=== PATIENT | male | born 1980 | race Caucasian/White ===

== ENCOUNTER → 2018-09-01 | Day surgery (SDC) | payer BC ==
[~2018-09-01] MED LIST: ACETAMINOPHEN 1000 MG/100 ML IV ONE; CEFAZOLIN SOD 1 GM/NS 50ML 50 ML IV ONE; DEXAMETHASONE SOD PHOS INJ 4 MG/ML VIAL ONE; FENTANYL CITRATE/PF 100MCG/2 ML INJ ONE; KETOROLAC TROMETHAMINE 30 MG/ML VIAL ONE; LIDOCAINE HCL 2% LOCAL INJ 5 ML SDV VIAL INJ ONE; MIDAZOLAM HCL 2 MG/2 ML VIAL ONE; PROPOFOL IV EMULSION 10 MG/ML 20 ML VIAL ONE; SEVOFLURANE INHAL SOLN 250 ML PEN BTL ONE
--- OUTSIDE RECORDS SUMMARY | 2018-09-01 07:42 | XMS REPORT | Continuity of Care Document ---
Author Author [facility] Interface Address Unknown Phone Unavailable Problems Problem Status Onset Date Classification Date Reported Comments Source Productive cough 06/10/2018 Diagnosis 06/10/2018 [facility] Upper respiratory infection 06/10/2018 Diagnosis 06/10/2018 [facility] Fever 01/17/2018 Diagnosis 01/17/2018 [facility] Streptococcal sore throat 01/17/2018 Diagnosis 01/17/2018 [facility] Acute otitis media with effusion 10/13/2017 Diagnosis 10/13/2017 [facility] Posterior rhinorrhea 10/13/2017 Diagnosis 10/13/2017 [facility] Acute pharyngitis 10/13/2017 Diagnosis 10/13/2017 [facility] Tinea cruris 02/12/2017 Diagnosis 02/12/2017 [facility] Generalized aches and pains 02/12/2017 Diagnosis 02/12/2017 [facility] Dry cough 02/12/2017 Diagnosis 02/12/2017 [facility] Contact dermatitis 07/30/2016 Diagnosis 07/30/2016 [facility] Conjunctivitis Problem 02/12/2017 [facility] Influenza Problem 02/12/2017 [facility] Medications Medication Details Route Status Patient Instructions Ordering Provider Order Date Source Amoxicillin 875 MG Oral Tablet amoxicillin 875 mg tablet Take 1 tablet every 12 hours by oral route as directed for 10 days. Active [facility] Diazepam 2 MG Oral Tablet diazepam 2 mg tablet Active [facility] Fluticasone propionate 0.05 MG/ACTUAT Metered Dose Nasal [place] fluticasone 50 mcg/actuation nasal spray,suspension [place] 1 spray twice a day by intranasal route for 30 days. Active [facility] Medrol (Sanket) 4 mg tablets in a dose pack Medrol (Sanket) 4 mg tablets in a dose pack take as directed, tapering doses Active [facility] cetirizine hydrochloride 10 MG Oral Tablet [Zyrtec] Zyrtec 10 mg tablet Take 1 tablet every day by oral route for 15 days. Active [facility] Fluconazole 150 MG Oral Tablet [Diflucan] Diflucan 150 mg tablet Take 1 tablet every week by oral route. Active [facility] Ketoconazole 20 MG/ML Topical Cream ketoconazole 2 % topical cream APPLY TO THE AFFECTED AREA(S) BY TOPICAL ROUTE ONCE DAILY Active [facility] Triamcinolone Acetonide 1 MG/ML Topical Cream triamcinolone acetonide 0.1 % topical cream APPLY A THIN LAYER TO THE AFFECTED AREA(S) BY TOPICAL ROUTE 2 TIMES PER DAY X 10 DAYS Active [facility] Ofloxacin 3 MG/ML Ophthalmic Solution ofloxacin 0.3 % eye drops INSTILL 1 DROP INTO AFFECTED EYE(S) BY OPHTHALMIC ROUTE 4 TIMES PER DAY x 7 days Active [facility] No Medications Reported No Medications Reported Active [facility] benzonatate 200 MG Oral Capsule benzonatate 200 mg capsule Take 1 capsule 3 times a day by oral route as needed. Active [facility] Dexamethasone 1 MG/ML / Neomycin 3.5 MG/ML / Polymyxin B 09240 UNT/ML Ophthalmic Suspension lewxxdjc-xvvihiwvt-bcsquktm 3.5 mg/mL-10,000 unit/mL-0.1% eye drops Active [facility] Azithromycin 250 MG Oral Tablet Zithromax Z-Sanket 250 mg tablet TAKE 2 TABLETS (500 MG) BY ORAL ROUTE ONCE DAILY FOR 1 DAY THEN 1 TABLET (250 MG) BY ORAL ROUTE ONCE DAILY FOR 4 DAYS Active [facility] Allergies, Adverse Reactions, Alerts Substance Category Reaction Severity Reaction type Status Date Reported Comments Source Immunizations Immunization Date Given Site Status Last Updated Comments Source influenza, injectable, quadrivalent 01/30/2018 completed [facility] influenza, injectable, quadrivalent 12/30/2016 completed [facility] influenza, seasonal, injectable 12/01/2015 completed [facility] influenza, seasonal, injectable 04/24/2013 completed [facility] Tdap 01/26/2009 completed [facility] Results Order Name Results Value Reference Range Date Interpretation Comments Source Influenza A negative 01/17/2018 [facility] Influenza B negative 01/17/2018 [facility] RESULT positive 01/17/2018 [facility] SWAB LOCATION Left and Right tonsillar pillars 01/17/2018 [facility] RESULT negative 10/13/2017 [facility] SWAB LOCATION Left and Right tonsillar pillars 10/13/2017 [facility] Influenza A negative 02/12/2017 [facility] Influenza B negative 02/12/2017 [facility] Adenovirus Ag [Presence] in Unspecified specimen by Immunoassay RESULT negative 03/09/2016 [facility] Adenovirus Ag [Presence] in Unspecified specimen by Immunoassay SWAB LOCATION Right Conjunctiva 03/09/2016 [facility] Influenza A positive 03/09/2016 [facility] Influenza B negative 03/09/2016 [facility] Influenza A positive 02/08/2016 [facility] Influenza B negative 02/08/2016 [facility] Vital Signs Vital Sign Value Date Comments Source Diastolic (mm Hg) 80 06/10/2018 [facility] Height 80 06/10/2018 [facility] Systolic (mm Hg) 118 06/10/2018 [facility] Weight 220 06/10/2018 [facility] Diastolic (mm Hg) 78 01/17/2018 [facility] Height 80 01/17/2018 [facility] Systolic (mm Hg) 112 01/17/2018 [facility] Weight 220 01/17/2018 [facility] Diastolic (mm Hg) 68 10/13/2017 [facility] Height 80 10/13/2017 [facility] Systolic (mm Hg) 110 10/13/2017 [facility] Weight 219 10/13/2017 [facility] Diastolic (mm Hg) 80 02/12/2017 [facility] Height 80 02/12/2017 [facility] Systolic (mm Hg) 126 02/12/2017 [facility] Weight 215 02/12/2017 [facility] Diastolic (mm Hg) 80 07/30/2016 [facility] Height 80 07/30/2016 [facility] Systolic (mm Hg) 124 07/30/2016 [facility] Weight 215 07/30/2016 [facility] Diastolic (mm Hg) 80 03/09/2016 [facility] Height 80 03/09/2016 [facility] Systolic (mm Hg) 126 03/09/2016 [facility] Weight 210 03/09/2016 [facility] Diastolic (mm Hg) 88 02/08/2016 [facility] Height 80 02/08/2016 [facility] Systolic (mm Hg) 136 02/08/2016 [facility] Weight 213 02/08/2016 [facility] Encounters Location Location Details Encounter Type Encounter Number Reason For Visit Attending Provider ADM Date DC Date Status Source [place] - [facility] - [id number] MontelongoP: [address] [facility] [address], Ph. [id number] Chandni Reyez 02/08/2016 [facility] [place] [facility] - [id number] Chandnibreann Reyez, SCRIPT MANAGER: [address] [facility] [address] [place] [address], Ph. [id number] Chandni Reyez 02/08/2016 [facility] [place] [facility] - [id number] Chandni Reyez, SCRIPT MANAGER: [address] [facility] [address] [place] [id number], Ph. [id number] Chandni Reyez 03/09/2016 [facility] [place] [facility] - [id number] Rebecca Lomax, SCRIPT MANAGER: [address] [facility] [address] [place] [address], Ph. [id number] Rebecca Lomax 07/30/2016 [facility] [place] [facility] - [id number] Rafael Lomax, SCRIPT MANAGER: [address] [facility] [address], Ph. [id number] Rafael Lomax 02/12/2017 [facility] [place] [facility] - [id number] Eliceo Russell, STAFF CYTOTECHNOLOGIST-C: [address] [facility] [address], Ph. [id number] Eliceo Russell 10/13/2017 [facility] [place] [facility] [id number] Sendy Rees, SCRIPT MANAGER-C: [address] [place] [address], Ph. [phone] [id number] Sendy Rees 01/17/2018 [facility] [place] [facility] - [id number] [place] Sendy Rees, SCRIPT MANAGER-C: [address] [place] [facility] [place] [facility] [address], Ph. [phone] [id number] Sendy Rees 06/10/2018 [facility] Procedures Procedure Code Date Perfomer Comments Source
--- OUTSIDE RECORDS SUMMARY | 2018-09-01 07:43 | XMS REPORT | Encounter Summary ---
Author Organization Unknown Address [address] [place] [address] Phone [phone] Reason for Visit Medical Complaint Instructions 1. Contact dermatitis triamcinolone acetonide 0.1 % topical cream Discussion Note: None recorded. Patient educational handouts: No information available. Plan of Care Patient Instructions Keep area clean and dry. Monitor for any pustule drainage, tender, warm to touch. If those symptoms occur, call clinic back. Reminders Provider Appointments None recorded. Lab None recorded. Referral None recorded. Procedures None recorded. Surgeries None recorded. Imaging None recorded. Medications Name Start Date triamcinolone acetonide 0.1 % topical cream APPLY A THIN LAYER TO THE AFFECTED AREA(S) BY TOPICAL ROUTE 2 TIMES PER DAY x 10 days Medications Administered None recorded. Vitals Height Weight BMI Blood Pressure 6 ft 8 in 215 lbs 23.6 124/80 Lab Results None recorded. Allergies Code Code System Name Reaction Severity Onset NKDA Problems Name Status Onset Date Source Conjunctivitis Active Encounter Influenza Active Encounter Procedures None recorded. Vaccine List Vaccine Type influenza, seasonal, injectable 04/24/2013 11/30/2015 Tdap 01/26/2009 Social History Smoking Status Never Smoker Past Encounters 07/30/2016 Contact Dermatitis Rebecca Lomax, EDI DEVELOPER: [address] [facility] [place] [address], Ph. History of Present Illness Jzmq-Rsyrrsl-Sppdi-Skin Lesion-Bite 2 Reported By: Patient HPI: Location: ; right lateral lower leg. Quality: itchy. Duration: has noted for 1-2 weeks. Onset/Timing: abrupt onset. Context: bite/sting exposure. Aggravating factors: nothing makes it worse. Alleviating factors: nothing gives relief. Associated Symptoms: no fever/chills, no muscle aches, no headache, no cold symptoms, no nausea, no vomiting, no diarrhea, no urinary symptoms Lwwg-Jnefxih-Yvlub-Skin Lesion-Bite 1 Reported By: Patient HPI: Location: ; right foot. Quality: itchy. Severity: moderate. Duration: has noted for 1-2 weeks; 1 week. Onset/Timing: abrupt onset. Context: no one else with similar rash, no sting or bite, tick exposure. Aggravating factors: nothing makes it worse. Alleviating factors: ; denies of taking any otc. Associated Symptoms: no fever/chills, no muscle aches, no headache, no cold symptoms, no nausea, no vomiting, no diarrhea, no urinary symptoms Review of Systems Basic Reported By: Patient Constitutional: Constitutional: no fever Eyes: Eyes: no eye complaints Kyfn-Bgzn-Yvjnx-Throat: Ears: no ear complaints. Nose: no nose/sinus problems. Mouth/Throat: no sore throat, no bleeding gums, no mouth complaints, no teeth problems Cardiovascular: Cardiovascular: no chest pain, no shortness of breath, no known heart murmur Respiratory: Respiratory: no cough, no wheezing, no shortness of breath Gastrointestinal: Gastrointestinal: no abdominal pain, no vomiting / diarrhea Genitourinary: Genitourinary: no urinary complaints, no discharge Musculoskeletal: Musculoskeletal: no muscle aches, no muscle weakness, no arthralgias/joint pain, no back pain Skin: Skin: no abnormal / changing mole, no jaundice, rash, itching Neurologic: Neurologic: no loss of consciousness, no weakness, no numbness, no seizures, no dizziness, no headaches Physical Exam Adult Basic, Adult Female Complete, Adult Male Complete Reported By: Patient Constitutional: General Appearance: healthy-appearing, well-nourished, well-developed. Level of Distress: NAD. Ambulation: ambulating normally Psychiatric: Mental Status: active and alert. Orientation: to time, to place, to person Eyes: Lids and Conjunctivae: non-injected, no discharge, no pallor. Pupils: PERRLA. Corneas: grossly intact. EOM: EOMI. Lens: clear. Sclerae: non-icteric. Vision: acuity grossly intact Osc-Exez-Ucbcn-Throat: Ears: no lesions on external ear, no outer ear tenderness, EACs clear, TMs clear. Hearing: no hearing loss. Nose: no lesions on external nose, nares patent, no septal deviation, nasal passages clear, no sinus tenderness, no nasal discharge. Lips, Teeth, and Gums: no mouth or lip ulcers, no bleeding gums, normal dentition. Oropharynx: moist mucous membranes, no erythema, no exudates, tonsils not enlarged Neck: Neck: supple, trachea midline, no masses, FROM. Lymph Nodes: no cervical LAD, no supraclavicular LAD. Thyroid: no enlargement, non-tender, no nodules Lungs: Respiratory effort: no dyspnea, no tachypnea, no use of accessory muscles, no intercostal retractions. Auscultation: breath sounds normal Cardiovascular: Heart Auscultation: RRR, no murmurs. Neck vessels: no carotid bruits Skin: Inspection and palpation: rash
--- OUTSIDE RECORDS SUMMARY | 2018-09-01 07:43 | XMS REPORT | Encounter Summary ---
Author Organization Unknown Address [address] [place] [address] Phone [phone] Reason for Visit Medical Complaint Instructions 1. Upper respiratory infection upper respiratory infection (cold): care instructions 2. Productive cough benzonatate 200 mg capsule Zithromax Z-Sanket 250 mg tablet cough: care instructions Discussion Note Pt. is NAD. Take medications as prescribed; f/u with PCP within 2-3 days should symptoms worsen as discussed. ER precautions and Care instructions given. Verbalized all instructions. No further questions upon d/c. Plan of Care Patient Instructions To prevent dehydration, drink plenty of fluids, enough so that your urine is light yellow or clear like water. Choose water and other caffeine-free clear liquids until you feel better. If you have kidney, heart, or liver disease and have to limit fluids, talk with your doctor before you increase the amount of fluids you drink. Take an nguc-kml-laogrui pain medicine, such as acetaminophen (Tylenol), ibuprofen (Advil, Motrin), or naproxen (Aleve). Read and follow all instructions on the label. Before you use cough and cold medicines, check the label. These medicines may not be safe for young children or for people with certain health problems. Be careful when taking xakl-bvt-nmpftcr cold or flu medicines and Tylenol at the same time. Many of these medicines have acetaminophen, which is Tylenol. Read the labels to make sure that you are not taking more than the recommended dose. Too much acetaminophen (Tylenol) can be harmful. Get plenty of rest. Do not smoke or allow others to smoke around you. Reminders Provider Appointments None recorded. Lab None recorded. Referral None recorded. Procedures None recorded. Surgeries None recorded. Imaging None recorded. Medications Name Start Date benzonatate 200 mg capsule Take 1 capsule 3 times a day by oral route as needed. ygozitvi-sbjdaoruw-qekqybnx 3.5 mg/mL-10,000 unit/mL-0.1% eye drops Zithromax Z-Sanket 250 mg tablet TAKE 2 TABLETS (500 MG) BY ORAL ROUTE ONCE DAILY FOR 1 DAY THEN 1 TABLET (250 MG) BY ORAL ROUTE ONCE DAILY FOR 4 DAYS Medications Administered None recorded. Vitals Height Weight BMI Blood Pressure 6 ft 8 in 220 lbs 24.2 kg/m2 118/80 mm[Hg] Lab Results None recorded. Allergies Code Code System Name Reaction Severity Status Onset NKDA Problems No Known Problems Procedures None recorded. Vaccine List Vaccine Type influenza, injectable, quadrivalent 12/30/2016 01/30/2018 influenza, seasonal, injectable 04/24/2013 12/01/2015 Tdap 01/26/2009 Social History Smoking Status Never Smoker Past Encounters 06/10/2018 Upper Respiratory Infection; Productive Cough Rashmin Negrita, [employer]: [address] [facility], [place] [address], Ph. [phone] History of Present Illness Bcyng-Evxwodlqwg-Wccfiip Reported By: Patient HPI: Location: head/sinuses, chest. Quality: productive cough, colored phlegm, nasal/sinus congestion. Duration: 9days; not improving per pt. Severity: mild, moderate. Onset/Timing: gradual. Context: no foreign travel, non-smoker, sick contact. Modifying factors: OTC medication. Associated Symptoms: no shortness of breath, no wheezing, no change in number of pillows needed to sleep at night, no sweats, no significant weight gain, no significant weight loss, no sore throat, no vomiting, no diarrhea, no rash, no nausea, no muscle aches, no headache, yellow-green, thick sputum, morning cough, fever Notes: Also reports congestion, runny nose. No other symptoms reported Review of Systems:ROS as noted in the HPI Review of Systems Basic Reported By: Patient Physical Exam Adult Basic, Adult Male Complete Reported By: Patient Constitutional: General Appearance: healthy-appearing, well-nourished, well-developed. Level of Distress: NAD. Ambulation: ambulating normally Psychiatric: Mental Status: active and alert. Orientation: to time, to place, to person Upk-Qlqy-Jfzpc-Throat: Ears: no lesions on external ear, no outer ear tenderness, EACs clear, TMs clear, TM mobility normal. Hearing: no hearing loss. Nose: no lesions on external nose, nares patent, no septal deviation, nasal passages clear, no sinus tenderness, nasal discharge--purulent, post nasal drip. Lips, Teeth, and Gums: no mouth or lip ulcers, no bleeding gums, normal dentition. Oropharynx: moist mucous membranes, no erythema, no exudates, tonsils not enlarged Neck: Lymph Nodes: no cervical LAD, no supraclavicular LAD Lungs: Respiratory effort: no dyspnea, no tachypnea, no use of accessory muscles, no intercostal retractions. Auscultation: breath sounds normal, good air movement Cardiovascular: Heart Auscultation: RRR, no murmurs Neurologic: Gait and Station: normal gait, normal station
--- OUTSIDE RECORDS SUMMARY | 2018-09-01 07:43 | XMS REPORT ---
Author Author [facility] Address Unknown Phone Unavailable Care Team Providers Care Logger Driving Horses Name Role Phone Unavailable Unavailable Problems This patient has no known problems. Allergies, Adverse Reactions, Alerts This patient has no known allergies or adverse reactions. Medications This patient has no known medications. Results Test Description Test Time Test Comments Text Results Atomic Results Result Comments MRA BRAIN WO CLINICAL INDICATION: R42 Dizziness and giddiness MODALITY: Avanto 1.5 Leydi 18 channel MRITECHNIQUE: 3 dimensional time of flight MR angiographic images, centered at the [place] of [place], are performed. 2D and 3 D reconstructions are accomplished.IMPRESSION:Brain MRA within normal limits.FINDINGS:COMPARISON: NoneThe bilateral distal cervical, petrous, cavernous and supraclinoid internal carotid arteries are patent. The anterior communicating artery is patent. The visualized anterior cerebral and middle cerebral arteries are patent. The middle cerebral arteries are followed to the perisylvian regions and are patent bilaterally.Posterior communicating arteries are patent. The bilateral vertebral arteries are patent without luminal abnormalities. The basilar artery is normal. There is no evidence of basilar artery stenosis. The visualized posterior circulation is normal.There is no evidence of aneurysm or vascular malformation.There is no significant intracranial atheromatous disease, luminal stenosis or vascular filling defect.There is no evidence of intracranial large vessel vasculitic process.There are no intracranial or skull base vascular dissections. MRA NECK W/O (CAROTID) CLINICAL INDICATION: R42 Dizziness and giddinessMODALITY: Avanto 1.5 Leydi 18 channel MRITECHNIQUE: Two dimensional and three dimensional time of flight techniques are utilized. 2D and MIP reconstructions are performed.IMPRESSION:Carotid MRA within normal limits.FINDINGS:COMPARISON: NoneBilateral common carotid arteries are patent .Carotid bulbs are patent without stenosis or ulceration.The distal bilateral cervical internal carotid arteries are patent to the level of the skull base.The left vertebral artery is dominant. Both vertebral arteries are patent.There is no evidence of vascular dissection in the neck.
--- OUTSIDE RECORDS SUMMARY | 2018-09-01 07:43 | XMS REPORT | Encounter Summary ---
Author Organization Unknown Address [address] [place] [address] Phone [phone] Reason for Visit Medical Complaint Instructions 1. Tinea cruris ketoconazole 2 % topical cream Diflucan 150 mg tablet jock itch: care instructions 2. Generalized aches and pains rapid flu (A+B) 3. Dry cough Discussion Note: None recorded. Plan of Care Patient Instructions Take your prescribed medication and over the counter medications as directed. If you experience high fever over 101F, shortness of breath, persistent wheezing, severe pain, vomiting, or dizziness, please go to the ER. If you smoke, think about quitting. Quitting smoking has been shown to have immediate and long-term health benefits. Eat a heart healthy diet and exercise for at least 150 minutes per week. Follow up with your Primary Care Provider. Reminders Provider Appointments None recorded. Lab Rapid Flu (A+B) 02/12/2017 [facility] Referral None recorded. Procedures None recorded. Surgeries None recorded. Imaging None recorded. Medications Name Start Date Diflucan 150 mg tablet Take 1 tablet every week by oral route. ketoconazole 2 % topical cream APPLY TO THE AFFECTED AREA(S) BY TOPICAL ROUTE ONCE DAILY triamcinolone acetonide 0.1 % topical cream APPLY A THIN LAYER TO THE AFFECTED AREA(S) BY TOPICAL ROUTE 2 TIMES PER DAY X 10 DAYS Medications Administered None recorded. Vitals Height Weight BMI Blood Pressure 6 ft 8 in 215 lbs 23.6 kg/m2 126/80 mm[Hg] Lab Results Date Name Specimen Result Interpretation Description Value Range Status Address Rapid Flu (A+B) Influenza a negative [facility]: [address] [place] [address] Influenza B negative [facility]: [address] [place] [address] Allergies Code Code System Name Reaction Severity Status Onset NKDA Problems Name Status Onset Date Source Conjunctivitis Active Encounter Influenza Active Encounter Procedures None recorded. Vaccine List Vaccine Type influenza, seasonal, injectable 04/24/2013 12/01/2015 Tdap 01/26/2009 Social History Smoking Status Never Smoker Past Encounters 02/12/2017 Tinea Cruris; Generalized Aches and Pains; Dry Cough OFE BacaP: [address] [facility] [place] [address], Ph. History of Present Illness Cough Reported By: Patient HPI: Location: chest. Quality: congested, dry cough. Duration: 3 days. Onset/Timing: gradual. Context: no foreign travel, non-smoker. Modifying factors: OTC medication. Associated Symptoms: no sputum production, no shortness of breath, no wheezing, no sweats, no significant weight gain, no significant weight loss, no morning cough, no sore throat, no vomiting, no diarrhea, no nausea, no fever/chills, no muscle aches, no headache Wurr-Vsosutb-Bwuyu-Skin Lesion-Bite 1 Reported By: Patient HPI: Location: ; right groin. Quality: itchy, red. Severity: worsening. Duration: has noted for 1-2 weeks. Onset/Timing: abrupt onset. Context: no new detergents or skin products, no one else with similar rash, no sting or bite. Aggravating factors: nothing makes it worse. Associated Symptoms: no fever/chills, no muscle aches, no headache, no cold symptoms, no nausea, no vomiting, no diarrhea, no urinary symptoms Review of Systems Basic Reported By: Patient Constitutional: Constitutional: no fever Eyes: Eyes: no eye complaints Swww-Wvwv-Xdvsg-Throat: Ears: no ear complaints. Nose: no nose/sinus problems. Mouth/Throat: no sore throat, no bleeding gums, no mouth complaints, no teeth problems Cardiovascular: Cardiovascular: no chest pain, no shortness of breath, no known heart murmur Respiratory: Respiratory: no wheezing, no shortness of breath, cough Gastrointestinal: Gastrointestinal: no abdominal pain, no vomiting / diarrhea Genitourinary: Genitourinary: no urinary complaints, no discharge Musculoskeletal: Musculoskeletal: no muscle aches, no muscle weakness, no arthralgias/joint pain, no back pain Skin: Skin: no abnormal / changing mole, no jaundice, rash, itching Neurologic: Neurologic: no loss of consciousness, no weakness, no numbness, no seizures, no dizziness, no headaches Physical Exam Adult Basic Reported By: Patient Constitutional: General Appearance: healthy-appearing, well-nourished, well-developed. Level of Distress: NAD. Ambulation: ambulating normally Psychiatric: Mental Status: active and alert. Orientation: to time, to place, to person Eyes: Lids and Conjunctivae: non-injected, no discharge, no pallor. Pupils: PERRLA. Corneas: grossly intact. EOM: EOMI. Lens: clear. Sclerae: non-icteric. Vision: acuity grossly intact Vzp-Kobz-Qoygj-Throat: Ears: no lesions on external ear, no outer ear tenderness, EACs clear, TMs clear. Hearing: no hearing loss. Nose: no lesions on external nose, nares patent, no septal deviation, nasal passages clear, no sinus tenderness, post nasal drip. Lips, Teeth, and Gums: [...] sounds normal Cardiovascular: Heart Auscultation: RRR, no murmurs Neurologic: Gait and Station: normal gait, normal station. Sensation: grossly intact Skin: Inspection and palpation: no ulcer, no abnormal nevi, no induration, no nodules, good turgor, no jaundice, rash, lesion; annular papular 1.5 inch patch w/ central clearing and scattered papules on right groin near scrotum. Nails: normal Back: Thoracolumbar Appearance: normal curvature
--- OUTSIDE RECORDS SUMMARY | 2018-09-01 07:43 | XMS REPORT | Encounter Summary ---
Author Organization Unknown Address [address] [place] [address] Phone [phone] Reason for Visit cough, congestion x 4 days Instructions 1. Influenza rapid flu (A+B) Discussion Note: None recorded. Patient educational handouts: No information available. Plan of Care Reminders Provider Appointments None recorded. Lab Rapid Flu (A+B) 02/08/2016 [facility] Referral None recorded. Procedures None recorded. Surgeries None recorded. Imaging None recorded. Medications No Medications Reported Medications Administered None recorded. Vitals Height Weight BMI Blood Pressure 6 ft 8 in 213 lbs 23.4 136/88 Lab Results Date Name Result Description Value Range Status Rapid Flu (A+B) Influenza a positive Influenza B negative Allergies Name Reaction Severity Onset NKDA Problems Name Status Onset Date Source Influenza Active Encounter Procedures None recorded. Vaccine List Vaccine Type influenza, seasonal, injectable 04/24/2013 11/30/2015 Tdap 01/26/2009 Social History Smoking Status Never Smoker Past Encounters 02/08/2016 Influenza CHEN Brooke: [address] [facility] , [place] [address], Ph. History of Present Illness Mgzvy-Yachtqysjf-Ogmlziy Reported By: Patient HPI: Location: head/sinuses, chest. Quality: nasal/sinus congestion, dry cough. Duration: 4days. Severity: moderate. Onset/Timing: gradual. Context: no foreign travel, non-smoker, sick contact. Modifying factors: OTC medication. Associated Symptoms: no sputum production, no shortness of breath, no wheezing, no change in number of pillows needed to sleep at night, no sweats, no significant weight gain, no significant weight loss, no morning cough, no sore throat, no vomiting, no diarrhea, no rash, no nausea, fatigue Review of Systems Basic Reported By: Patient Constitutional: Constitutional: no fever Eyes: Eyes: no eye complaints Msln-Tuka-Hrgzr-Throat: Ears: ; pressure. Nose: nose/sinus problems. Mouth/Throat: no sore throat, no [...] no abnormal / changing mole, no jaundice, no rashes Neurologic: Neurologic: no loss of consciousness, no weakness, no numbness, no seizures, no dizziness, no headaches Physical Exam Adult Basic, Adult Male Complete Constitutional: General Appearance: healthy-appearing, well-nourished, well-developed. Level of Distress: NAD. Ambulation: ambulating normally Psychiatric: Mental Status: active and alert. Orientation: to time, to place, to person Eyes: Lids and Conjunctivae: non-injected, no discharge, no pallor Vzl-Jbej-Lxiou-Throat: Ears: no lesions on external ear, no outer ear tenderness, EACs clear, TMs clear, TM mobility normal. Hearing: no hearing loss. Nose: no lesions on external nose, no septal deviation, nasal passages clear, no sinus tenderness, no nasal discharge; turbinates swollen. Lips, Teeth, and Gums: no mouth or lip ulcers, no bleeding gums, normal dentition. Oropharynx: moist mucous membranes, no erythema, no exudates, tonsils not enlarged Neck: Lymph Nodes: no cervical LAD Lungs: Respiratory effort: no dyspnea, no tachypnea, no use of accessory muscles. Auscultation: breath sounds normal, good air movement Cardiovascular: Heart Auscultation: RRR Neurologic: Gait and Station: normal gait
--- OUTSIDE RECORDS SUMMARY | 2018-09-01 07:43 | XMS REPORT | Encounter Summary ---
Author Organization Unknown Address [address] [place] [address] Phone [phone] Reason for Visit Medical Complaint Instructions 1. Conjunctivitis adenovirus Ag, Immunoassay ofloxacin 0.3 % eye drops Discussion Note: None recorded. Patient educational handouts: No information available. Plan of Care Reminders Provider Appointments None recorded. Lab Adenovirus Ag, Immunoassay 03/09/2016 [facility] Referral None recorded. Procedures None recorded. Surgeries None recorded. Imaging None recorded. Medications Name Start Date ofloxacin 0.3 % eye drops INSTILL 1 DROP INTO AFFECTED EYE(S) BY OPHTHALMIC ROUTE 4 TIMES PER DAY x 7 days Medications Administered None recorded. Vitals Height Weight BMI Blood Pressure 6 ft 8 in 210 lbs 23.1 126/80 Lab Results Date Name Result Description Value Range Status Rapid Flu (A+B) Influenza a positive Influenza B negative Adenovirus Ag, Immunoassay Result negative Swab Location Right Conjunctiva Allergies Name Reaction Severity Onset NKDA Problems Name Status Onset Date Source Conjunctivitis Active Encounter Influenza Active Encounter Procedures None recorded. Vaccine List Vaccine Type influenza, seasonal, injectable 04/24/2013 11/30/2015 Tdap 01/26/2009 Social History Smoking Status Never Smoker Past Encounters 03/09/2016 Conjunctivitis CHEN Brooke: [address] [facility] [place] [address], Ph. 02/08/2016 Influenza CHEN Brooke: [address] [facility] [place] [address], Ph. History of Present Illness Eye Complaint Reported By: Patient HPI: Location: left. Severity: no pain. Duration actual date 3 days ago. Onset/Timing: recurrent episode. Context no previous history of Iritis, no previous history of recurrent corneal erosion, no one else with similar symptoms. Modifying factors ; leftover polytrim gtts TID x 2 days - no relief. Associated Symptoms: vision intact, no sensitivity to light, no foreign body sensation in eyes, no pain in the eyes, no pain with eye movement, no headache, no fever/chills, no muscle aches, mucous discharge from the eyes, matting/drainage Review of Systems Basic Reported By: Patient Constitutional: Constitutional: no fever Jjqs-Jtum-Latyb-Throat: Ears: no ear complaints. Nose: no nose/sinus [...] place, to person Eyes: Lids and Conjunctivae: no discharge, no pallor, injected. Pupils: PERRLA. EOM: EOMI. Sclerae: injected. Vision: acuity grossly intact Agy-Zlnq-Quyqc-Throat: Hearing: no hearing loss. Nose: no lesions [...] dyspnea, no tachypnea, no use of accessory muscles Cardiovascular: Heart Auscultation: RRR Neurologic: Gait and Station: normal gait
--- OUTSIDE RECORDS SUMMARY | 2018-09-01 07:43 | XMS REPORT | Encounter Summary ---
Author Organization Unknown Address [address] [place] [address] Phone [phone] Reason for Visit Medical Complaint Instructions 1. Streptococcal sore throat rapid strep group A, throat strep throat: care instructions amoxicillin 875 mg tablet 2. Fever rapid flu (A+B) learning about fever Discussion Note Pt. is NAD. Take medications as prescribed; f/u with PCP within 2-3 days should symptoms worsen as discussed. ER precautions and Care instructions given. Verbalized all instructions. No further questions upon d/c. Plan of Care Patient Instructions Take your antibiotics as directed. Do not stop taking them just because you feel better. You need to take the full course of antibiotics. Strep throat can spread to others until 24 hours after you begin taking antibiotics. During this time, you should avoid contact with other people at work or home, especially infants and children. Do not sneeze or cough on others, and wash your hands often. Keep your drinking glass and eating utensils separate from those of others, and wash these items well in hot, soapy water. Gargle with warm salt water at least once each hour to help reduce swelling and make your throat feel better. Use 1 teaspoon of salt mixed in 8 fluid ounces of warm water. Take an zehe-evq-vhbktzq pain medication, such as acetaminophen (Tylenol), ibuprofen (Advil, Motrin), or naproxen (Aleve). Read and follow all instructions on the label. Try an khrq-deo-ahylkca anesthetic throat spray or throat lozenges, which may help relieve throat pain. Drink plenty of fluids. Fluids may help soothe an irritated throat. Hot fluids, such as tea or soup, may help your throat feel better. Eat soft solids and drink plenty of clear liquids. Flavored ice pops, ice cream, scrambled eggs, sherbet, and gelatin dessert (such as Jell-O) may also soothe the throat. Get lots of rest. Do not smoke, and avoid secondhand smoke. Use a vaporizer or humidifier to add moisture to the air in your bedroom. Follow the directions for cleaning the machine. Reminders Provider Appointments None recorded. Lab Rapid Strep Group a, Throat 01/17/2018 [facility] Rapid Flu (A+B) 01/17/2018 [facility] Referral None recorded. Procedures None recorded. Surgeries None recorded. Imaging None recorded. Medications Name Start Date amoxicillin 875 mg tablet Take 1 tablet every 12 hours by oral route as directed for 10 days. Medications Administered None recorded. Vitals Height Weight BMI Blood Pressure 6 ft 8 in 220 lbs 24.2 kg/m2 112/78 mm[Hg] Lab Results Date Name Specimen Result Interpretation Description Value Range Status Address Rapid Flu (A+B) Influenza a negative [facility]: [address] [place] [address] Influenza B negative [facility]: [address] [place] [address] Rapid Strep Group a, Throat Result positive [facility]: [address] [place] [address] Swab Location Left and Right tonsillar pillars [facility]: [address] [place] [address] Allergies Code Code System Name Reaction Severity Status Onset NKDA Problems No Known Problems Procedures None recorded. Vaccine List Vaccine Type influenza, injectable, quadrivalent 12/30/2016 influenza, seasonal, injectable 04/24/2013 12/01/2015 Tdap 01/26/2009 Social History Smoking Status Never Smoker Past Encounters 01/17/2018 Streptococcal Sore Throat; Fever Rashmin Negrita [facility]: [address] [place] [address], Ph. [phone] History of Present Illness Throat-Oral Complaint Reported By: Patient HPI: Location: throat. Quality: sore throat. Severity: moderate. Duration: 1 days. Onset/Timing: sudden. Context: no foreign travel, non-smoker, sick contact. Modifying factors: OTC medication. Associated Symptoms: no headache, no body aches, no sputum production, no shortness of breath, no wheezing, no change in number of pillows needed to sleep at night, no sweats, no significant weight gain, no significant weight loss, no morning cough, no vomiting, no diarrhea, no rash, no nausea, fever, fatigue, sore throat Notes: No other symptoms reported. Review of Systems:ROS as noted in the HPI Review of Systems Basic Reported By: Patient Physical Exam Adult Basic, Adult Male Complete Reported By: Patient Constitutional: General Appearance: healthy-appearing, well-nourished, well-developed. Level of Distress: NAD. Ambulation: ambulating normally Psychiatric: Mental Status: active and alert. Orientation: to time, to place, to person Znt-Shii-Ouvsy-Throat: Ears: no lesions on external ear, no outer ear tenderness, EACs clear, TMs clear. Hearing: no hearing loss. Nose: no lesions on external nose, nares patent, no septal deviation, nasal passages clear, no sinus tenderness, no nasal discharge. Lips, Teeth, and Gums: no mouth or lip ulcers, no bleeding gums, normal dentition. Oropharynx: moist mucous membranes, no exudates, erythema, tonsils enlarged 1+ Neck: Neck: supple, trachea midline, no masses, FROM. Lymph Nodes: no supraclavicular LAD, anterior cervical LAD Lungs: Respiratory effort: no dyspnea, no tachypnea, no use of accessory muscles, no intercostal retractions. Auscultation: breath sounds normal Cardiovascular: Heart Auscultation: RRR, no murmurs Skin: Inspection and palpation: no rash, no lesions, no ulcer, no abnormal nevi, no induration, no nodules, good turgor, no jaundice; on visible skin
--- OUTSIDE RECORDS SUMMARY | 2018-09-01 07:43 | XMS REPORT | Encounter Summary ---
Author Organization Unknown Address [address] [place] [address] Phone [phone] Reason for Visit Medical Complaint Instructions 1. Acute pharyngitis rapid strep group A, throat sore throat: care instructions 2. Posterior rhinorrhea fluticasone 50 mcg/actuation nasal spray,suspension Zyrtec 10 mg tablet 3. Acute otitis media with effusion Medrol (Sanket) 4 mg tablets in a dose pack middle ear fluid: care instructions oral corticosteroids: care instructions Discussion Note Pt in NAD, understands all information provided Plan of Care Patient Instructions Pt will take meds as prescribed with 8oz glass of water. Please seek care (PCP, Urgent Care, ER) or return to [facility] if symptoms get worse or do not resolve in 1 week. Reminders Provider Appointments None recorded. Lab Rapid Strep Group a, Throat 10/13/2017 [facility] Referral None recorded. Procedures None recorded. Surgeries None recorded. Imaging None recorded. Medications Name Start Date diazepam 2 mg tablet fluticasone 50 mcg/actuation nasal spray,suspension Eugene 1 spray twice a day by intranasal route for 30 days. Medrol (Sanket) 4 mg tablets in a dose pack take as directed, tapering doses Zyrtec 10 mg tablet Take 1 tablet every day by oral route for 15 days. Medications Administered None recorded. Vitals Height Weight BMI Blood Pressure 6 ft 8 in 219 lbs 24.1 kg/m2 110/68 mm[Hg] Lab Results Date Name Specimen Result Interpretation Description Value Range Status Address Rapid Strep Group a, Throat Result negative [facility]: [address] [place] [address] Swab Location Left and Right tonsillar pillars [facility]: [address] [place] [address] Allergies Code Code System Name Reaction Severity Status Onset NKDA Problems No Known Problems Procedures None recorded. Vaccine List Vaccine Type influenza, injectable, quadrivalent 12/30/2016 influenza, seasonal, injectable 04/24/2013 12/01/2015 Tdap 01/26/2009 Social History Smoking Status Never Smoker Past Encounters 10/13/2017 Acute Pharyngitis; Posterior Rhinorrhea; Acute Otitis Media with Effusion Eliceo Russell, [employer]ICAL SCIENCE [employer]IR-C: [address] [facility] , [place] [address], Ph. History of Present Illness Khczw-Ytylkewbzb-Wrjsaga Reported By: Patient HPI: Location: head/sinuses. Quality: productive cough, colored phlegm, nasal/sinus congestion. Duration: 4days. Severity: moderate. Context: no sick contacts, no foreign travel, non-smoker. Associated Symptoms: no sputum production, no shortness of breath, no wheezing, no change in number of pillows needed to sleep at night, no sweats, no significant weight gain, no significant weight loss, no morning cough, no vomiting, no diarrhea, no rash, no nausea, no fever, no muscle aches, no headache, sore throat Ear Complaint Reported By: Patient HPI: Location: left. Quality: ears feel full/plugged. Severity: intermittent. Onset/Timing: better. Context: no sick contacts, no recent swimming/water in ear, no exposure to second hand smoke, no head trauma, not grinding teeth, no recent air travel. Modifying factors: does not hurt to lie on, or pull on ear, does not hurt to chew. Associated Symptoms: no discharge from the ears, no popping noise in the e ars, no ringing in the ears, no fever, no chills, no dizziness, no vertigo, no headache, no muscle aches, nose/sinus problems, earache Review of Systems:ROS as noted in the HPI Review of Systems Basic Reported By: Patient Physical Exam Adult Basic, Adult Male Complete Reported By: Patient Constitutional: General Appearance: healthy-appearing, well-nourished, well-developed. Level of Distress: NAD. Ambulation: ambulating normally Psychiatric: Mental Status: active and alert. Orientation: to time, to place, to person Eza-Ekco-Zwzko-Throat: Ears: no lesions on external ear, no outer ear tenderness, EACs clear, TM bulging, TM opacified, middle ear fluid, TM immobile; left TM. Hearing: no hearing loss. Nose: no lesions on external nose, nares patent, no septal deviation, nasal passages clear, no sinus tenderness, post nasal drip. Lips, Teeth, and Gums: no mouth or lip ulcers, no bleeding gums, normal dentition. Oropharynx: moist mucous membranes, no exudates, tonsils not enlarged, erythema Neck: Lymph Nodes: no cervical LAD Lungs: Respiratory effort: no dyspnea, no tachypnea, no use of accessory muscles, no intercostal retractions. Auscultation: breath sounds normal, good air movement Cardiovascular: Heart Auscultation: no murmurs, tachycardia Neurologic: Gait and Station: normal gait, normal station
[2018-09-01 12:25] VITALS: BP 122/76
--- NOTE | 2018-09-01 18:23 | Operative Report ---
DATE OF PROCEDURE: 09/01/2018 SURGEON: Panfilo Devine MD LOFT PATTERNMAKER: Willie Maldonado. PREOPERATIVE DIAGNOSIS: Right knee medial meniscal tear. POSTOPERATIVE DIAGNOSIS: Right knee medial meniscal tear. PROCEDURES: Right knee arthroscopy, partial medial meniscectomy. INDICATIONS: The patient is a 37-year-old gentleman, who has clinic signs and symptoms consistent with a right knee medial meniscal tear. He would like to proceed with definitive intervention. The risks and benefits of fluoroscopy have been discussed. He states he understands and wishes to proceed DESCRIPTION OF PROCEDURE: The patient was brought to the operating room and placed under general anesthetic. His right lower extremity was prepped and draped in a sterile manner. A preoperative time-out was performed. A tourniquet placed on the upper thigh, was inflated to 300 mmHg. Standard arthroscopy portals were established. The knee was insufflated with sterile saline and systematically inspected. The suprapatellar pouch and patellofemoral groove were unremarkable. The medial gutter showed a portion of a meniscus flipped into the gutter. The medial compartment confirmed a complex tear of the posterior horn of the medial meniscus. There was a large radial component that was flipped up into the medial gutter. This was not considered to be a repairable tear. A partial medial meniscectomy was performed. I would estimate that less than 20% of the posterior horn of the medial meniscus was excised. Before and after photographs were taken. The meniscus was debrided back to a hook stable margin. The cruciate ligaments and lateral compartment were inspected and probed. There was no abnormalities. The arthroscopic instruments were removed. The portal incisions were closed with interrupted nylon stitches. A sterile bandage was applied. The patient was extubated and transported to the recovery room in stable condition. All needle and sponge counts were correct. Panfilo Devine MD DR/MODL /[id number]
== END | disposition home or self-care (01) ==
LOC: OR 07:40
PROVIDERS: ATTEND Specialist
DX: S83.231A Complex tear of medial meniscus, current injury, right knee, initial encounter (principal); X58.XXXA Exposure to other specified factors, initial encounter
CPT/HCPCS: 29881; J0131; J0690; J1100; J1885; J2001; J2250; J2704

== ENCOUNTER 2018-09-03 18:17 | Emergency (ER) | payer BC ==
[~2018-09-03] VITALS: Ht 193 cm; Wt 90.7 kg
[2018-09-03 19:05] LABS: BASOPHILS # (AUTO) 0.1 (0.0-0.1); EOSINOPHILS # (AUTO) 0.1 (0.0-0.4); EOSINOPHILS % 1.1 % (0.0-6.0); HEMATOCRIT 45.3 % (38.2-49.6); HEMOGLOBIN 15.3 g/dL (14.0-18.0); LYMPHOCYTES # (AUTO) 2.3 (1.0-3.2); LYMPHOCYTES % 36.8 % (18.0-39.1); MEAN CORPUSCULAR HEMOGLOBIN 30.1 pg (28-32); MEAN CORPUSCULAR HGB CONC 33.8 g/dL (31-35); MEAN CORPUSCULAR VOLUME 89.2 fL (81-99); MONOCYTES # (AUTO) 0.6 (0.2-0.8); MONOCYTES % 9.3 % (4.4-11.3); NEUTROPHILS # (AUTO) 3.1 (2.1-6.9); NEUTROPHILS % 51.3 % (38.7-80.0); PLATELET COUNT 186 x10e3/uL (140-360); RED BLOOD COUNT 5.08 x10e6/uL (4.3-5.7); RED CELL DISTRIBUTION WIDTH 12.4 % (11.7-14.4)
[2018-09-03 19:15] LABS: INR 0.86; PROTHROMBIN TIME 12.2 seconds (11.9-14.5)
[2018-09-03 19:23] LABS: ALANINE AMINOTRANSFERASE 18 IU/L (0-55); ALBUMIN 4.3 g/dL (3.5-5.0); ALBUMIN/GLOBULIN RATIO 1.2 (0.8-2.0); ALKALINE PHOSPHATASE 75 IU/L (40-150); BLOOD UREA NITROGEN 14 mg/dL (7-26); BUN/CREATININE RATIO 16 (6-25); CALCIUM 9.8 mg/dL (8.4-10.2); CARBON DIOXIDE 29 mmol/L (22-29); CHLORIDE 99 mmol/L (98-107); CREATININE, SERUM 0.85 mg/dL (0.72-1.25); EST GLOMERULAR FILTRATION RATE > 60 ML/MIN (60-); GLUCOSE 103 mg/dL (74-118); SODIUM 135 mmol/L (136-145)
== END 2018-09-03 20:19 | disposition home or self-care (01) ==
LOC: ER 18:17
DX: M79.661 Pain in right lower leg (principal)
CPT/HCPCS: 36415; 80053; 85025; 85610; 85730; 93970; 99283